=== PATIENT | female | born 1960 | race Caucasian/White ===

== ENCOUNTER 2018-09-10 07:26 | Day surgery (SDC) | payer BC ==
[2018-09-10] MEDS ORDERED: NACL 0.9% 500 ML 500 ML IV SCH (09:00)
[2018-09-10] MEDS ORDERED: HEPARIN/NS 5000 UNIT/500ML(CATH LAB) 1,000 ML IR ONE (10:14)
[2018-09-10] MEDS ORDERED: SUBLIMAZE ONE (10:40)
[2018-09-10] MEDS ORDERED: VERSED ONE (10:40)
[2018-09-10] MEDS: NITROGLYCERIN SYRINGE 3 ML ONE ×2 (10:43→10:53)
[2018-09-10] MEDS: XYLOCAINE 2% INFILTRATI ONE ×2 (10:45→10:51)
[2018-09-10] MEDS: CALAN ONE ×2 (10:45→10:53)
[2018-09-10] MEDS: HEPARIN 10,000 UNITS/10 ML ONE ×2 (10:45→10:53)
[2018-09-10] MEDS ORDERED: ULTRAM PO PRN (11:08)
--- NOTE | 2018-09-10 11:10 | Short Stay Summary ---
Short Stay Documentation Date of service: 09/10/18 - History H&P: obtained from office - Allergies and Medications Current Medications: Allergies No Known Allergies Allergy (Verified 09/10/18 08:58) Active Medications Sodium Chloride (Nacl 0.9% 500 Ml) 500 mls @ 50 mls/hr IV DIRECT PATTI Stop: 09/10/18 18:59 - Brief post op/procedure progress note Date of procedure: 09/10/18 Pre-op diagnosis: chest pain Post-op diagnosis: same Procedure: see report Anesthesia: local Estimated blood loss: none Pathology: none - Disposition Condition at discharge: Good Disposition: DC-01 TO HOME OR SELFCARE - Discharge Diagnoses (1) Chest pain Status: Chronic Qualifiers: Chest pain type: unspecified Qualified Code(s): R07.9 - Chest pain, unspecified (2) Hypertension Status: Chronic Qualifiers: Hypertension type: essential hypertension Qualified Code(s): I10 - Essential (primary) hypertension (3) Hyperlipemia, mixed Status: Chronic Short Stay Discharge Plan Activity: advance as tolerated Diet: low fat, low cholesterol, low salt Wound: keep clean and dry Follow up with: JOAN ESCALONA [Primary Care Provider] - 7 Days
--- NOTE | 2018-09-10 11:28 | Cardiac Catherization Report ---
LEFT HEART CATHETERIZATION CLINICAL INFORMATION: This is a 57-year-old female with history of hypertension, has been having recurrent chest pain with and without exertion and feels is no reasons had a stress test showed moderate inferior wall ischemia. She is on beta jo therapy, but cannot take nitrates, is here for left heart cath. The patient was under moderate sedation. Total sedation time was 26 minutes, started at 10:44 a.m., finished at 11:10 a.m., 1 mg Versed, 50 mcg of fentanyl. Left heart catheterization was done via the right radial artery, sterile technique, local anesthesia, 6-Ugandan radial sheath inserted. Left system engaged with JL3.5 catheter. Left main is large and patent, bifurcates into large LAD is patent with moderate to severe tortuosity. Diagonal 1 and diagonal 2 are small caliber vessel with moderate to severe tortuosity. Circumflex and AV groove is a large caliber vessel, patent with moderate to severe tortuosity. OM1 and OM2 are medium caliber vessel, patent with moderate to severe tortuosity. RCA engaged with JR4 catheter, is a large caliber vessel with moderate tortuosity. Normal bifurcates into small PDA and PLV that are patent with mild tortuosity. LV gram done in KENN and PRITCHETT view shows normal LV function, EF 60-65%. LVEDP 18 mmHg, LV is 128/18, aortic is 128/67 mmHg. No gradient across the aortic valve on pullback. 5-Ugandan catheter as guidewire, 6-Ugandan radial sheath was discontinued. Radial band applied. No hematoma, no bleeding. SUMMARY: 1. Patent coronaries with moderate tortuosity of vessels with right dominant vessel with normal LV function. 2. Noncardiac chest pain. We will continue medical management and discuss this in detail with the patient and the patient's family. JOB# [id number] GIANA/YADIRA
[2018-09-12 11:41] VITALS: BP 115/62
== END 2018-09-10 14:30 | disposition home or self-care (01) ==
LOC: CATHLABREC 07:26
PROVIDERS: ATTEND Internal Medicine
DX: R07.89 Other chest pain (principal); I10 Essential (primary) hypertension; I77.1 Stricture of artery; E78.2 Mixed hyperlipidemia; E78.00 Pure hypercholesterolemia, unspecified; M19.90 Unspecified osteoarthritis, unspecified site; E05.90 Thyrotoxicosis, unspecified without thyrotoxic crisis or storm; F32.9 Major depressive disorder, single episode, unspecified; Z98.890 Other specified postprocedural states
CPT/HCPCS: 93005; 93010; 93458; 99156; 99157; C1894; J1644; J2250; J3010; J7040; Q9967

== ENCOUNTER 2019-07-01 13:53 | Outpatient (CLI) | payer BC ==
--- NOTE | 2019-07-01 16:27 | Magnetic Resonance Report ---
MRI LUMBAR SPINE WITHOUT CONTRAST INDICATION / CLINICAL INFORMATION: Radiculopathy,lumbar region,low back pain. TECHNIQUE: Multisequence, multiplanar images of the lumbar spine were obtained. COMPARISON: None available. FINDINGS: Considering the lumbosacral junction to be L5-S1. ALIGNMENT: Normal lumbar lordosis with the minimal levoscoliosis VERTEBRAE:Normal marrow signal and vertebral body height for age. VISUALIZED SPINAL CORD: No significant abnormality. Conus ends at T12 vertebral body level. [id number] ANALYSIS: T11-T12 and T12-L1 disc spaces are normal. L1-2: No significant abnormality. L2-3: Disc height is narrowed. Bulging disc is seen extending laterally bilaterally slightly more to the right side. Neuroforamina are normal. L3-4: Broad-based shallow disc protrusion extending laterally bilaterally more towards the right side . L4-5: Based shallow disc protrusion is seen towards the right side. Facet and ligamentous hypertrophy are seen bilaterally. Right neuroforamen is narrowed. L5-S1: Disc space is narrowed. Type II endplate degenerative changes are seen. Minimal retrolisthesis seen. Broad-based extradural lesion is seen which appears to be a soft disc on the left side at and bony spur on the right side. Left neural foramen is narrowed. PARASPINAL SOFT TISSUES: No significant abnormality. ADDITIONAL FINDINGS: None. IMPRESSION: Spondylotic changes at multiple levels in the lumbar spine Shallow disc protrusion extending bilaterally more towards the right side at L2-L3 disc level Shallow disc protrusion extending bilaterally more towards the right side at L3-L4 disc level Broad-based shallow disc protrusion towards the right side at L4-L5 disc level Signer Name: Monika Sal MD Signed: 07/01/2019 4:23 PM Workstation Name: [id number]
== END 2019-07-01 13:54 | disposition home or self-care (01) ==
LOC: MRI 13:53
PROVIDERS: ATTEND Physical Medicine & Rehabilitation
DX: M51.16 Intervertebral disc disorders with radiculopathy, lumbar region (principal); M47.26 Other spondylosis with radiculopathy, lumbar region
CPT/HCPCS: 72148